=== PATIENT | female | born 1980 | race Caucasian/White ===

== ENCOUNTER 2017-08-25 14:53 | Outpatient (CLI) | payer BC, MEDICAID | END 2017-08-25 23:59 | disposition home or self-care (01) | LOC: RAD 14:53 → EDSTATUS 09-07 13:56 | PROVIDERS: ATTEND Emergency Medicine | DX: I67.89 Other cerebrovascular disease (principal); J32.0 Chronic maxillary sinusitis; Q28.3 Other malformations of cerebral vessels | CPT/HCPCS: 70544; 70551 ==